=== PATIENT | female | born 1945 | race African-American/Black ===

== ENCOUNTER 2020-06-24 11:06 | Emergency (ER) | payer OTHER ==
[~2020-06-24] VITALS: Ht 157.5 cm; Wt 114.3 kg
[~2020-06-24 11:06] MED LIST: IBUPROFEN 400400 M2 PO; IRON325 PO; KLOR-CON 1010 MEQ PO; LEVOTHYROXINE 0.1 MG PO; LISINOPRIL-HCT1 EAC1 PO; PRAVACHOL20 MG PO; ZANTAC 150MG T150 MG PO
[2020-06-24] MEDS ORDERED: NORCO 5-325 TA1 EAC2 PO (12:24)
[2020-06-24 13:30] VITALS: BP 151/71
== END 2020-06-24 13:23 | disposition home or self-care (01) ==
LOC: ER 11:06
DX: M65.4 Radial styloid tenosynovitis [de Quervain] (principal); I10 Essential (primary) hypertension; E78.5 Hyperlipidemia, unspecified; Z90.710 Acquired absence of both cervix and uterus; Z90.89 Acquired absence of other organs; Z79.899 Other long term (current) drug therapy